=== PATIENT | male | born 1995 | race American Indian/Alaskan Native ===

== ENCOUNTER 2018-10-08 00:07 | Emergency (ER) | payer OTHER ==
--- NOTE | 2018-10-08 02:11 | Emergency Department Report ---
Chief Complaint: Dental/Oral Stated Complaint: TOOTHACHE Time Seen by Provider: 10/08/18 02:08 - HPI History of Present Illness: Patient is a 23-year-old male who's had pain at tooth #31-32 for the past several months off and on. Patient states that he has pain in this area but no facial swelling. He has no difficulty swallowing. Patient states he does not have insurance so he came to the emergency department for pain management. - ROS Review of Systems: All other systems are reviewed and are negative - Exam Vital Signs: Vital Signs 10/08/18 00:13 Temperature 97.6 F Pulse Rate 61 Respiratory 18 Rate Blood Pressure 137/55 O2 Sat by Pulse 100 Oximetry Physical Exam: Patient's HEENT exam shows a patent airway. No lymphadenopathy in anterior cervical chain also lingual submental space. ASIS tooth #3132 do appear necrotic with minor pain to palpation but no swelling of the gums of the face. MSE screening note: Focused history and physical exam performed. Due to findings the following was ordered: ED Medical Decision Making - Medical Decision Making Patient is a non-medical emergency at this time. Patient is opted not $150 co-pay. I discussed just that the patient take [id number] Motrin. Patient states he is only been taking 1 Motrin and time. Patient did take up to 800 mg Motrin every 6 hours. Patient also given dental clinics [facility] of it will see people without insurance. Patient will be discharged home. ED Disposition for MSE Clinical Impression: Dental caries Disposition: Z- MED SCREENING EXAM-LEFT Is pt being admited?: No Does the pt Need Aspirin: No Condition: Stable Additional Instructions: Please take up to 4 200 mg Motrin every 6 hours for pain Referrals: BRENDAN GEE MD [Primary Care Provider] - 3-5 Days Time of Disposition: 02:11
[2018-10-08 03:32] VITALS: BP 129/60
== END 2018-10-08 02:30 | disposition left against medical advice (07) ==
LOC: ED 00:07
DX: K02.9 Dental caries, unspecified (principal)
CPT/HCPCS: 99282